=== PATIENT | female | born 1965 | race Caucasian/White ===

== ENCOUNTER 2016-08-21 01:40 | Emergency (ER) | payer OTHER ==
[~2016-08-21 01:40] MED LIST: ANAPROX DS550 MG PO; BLOOD PRESSURE MED; NEXIUM40 MG PO; PREVACID30 MG; PROZAC20 MG; [UNRECOGNIZED DRUG - OTHER]
[2016-08-21] MEDS ORDERED: HYDROCHLOROTHIA25 M1 PO (01:59)
[2016-08-21] MEDS ORDERED: NEXIUM40 M1 PO (01:59)
[2016-08-21] MEDS ORDERED: PAXIL40 M1 PO (01:59)
[2016-08-21] MEDS ORDERED: COZAAR100 M1 PO (01:59)
[2016-08-21] MEDS ORDERED: CO Q-10100 M2 PO (02:00)
[2016-08-21] MEDS ORDERED: EXCEDRIN MIGRA1 EAC3 PO (02:00)
[2016-08-21] MEDS ORDERED: POTASSIUM CHLO20 ME3 PO (02:00)
[2016-08-21] MEDS ORDERED: GLUCOPHAGE500 M3 PO (02:01)
[2016-08-21] MEDS ORDERED: PRAVASTATIN SOD20 M1 PO (02:01)
[2016-08-21] MEDS ORDERED: VITAMIN D31000 UNI3 PO (02:02)
[2016-08-21] MEDS ORDERED: CYCLOBENZAPRINE5 M1 PO (04:07)
[2016-08-21] MEDS ORDERED: TRAMADOL HCL50 M2 PO (04:07)
== END 2016-08-21 04:28 ==
LOC: EDMED 01:40
DX: M25.572 Pain in left ankle and joints of left foot (principal); I25.10 Atherosclerotic heart disease of native coronary artery without angina pectoris; I10 Essential (primary) hypertension; E11.9 Type 2 diabetes mellitus without complications; K21.9 Gastro-esophageal reflux disease without esophagitis; Z88.0 Allergy status to penicillin; Z88.5 Allergy status to narcotic agent; Z79.82 Long term (current) use of aspirin; Z79.899 Other long term (current) drug therapy
CPT/HCPCS: J1885

== ENCOUNTER 2016-08-26 06:16 | Emergency (ER) | payer OTHER, SELFPAY ==
[~2016-08-26 06:16] MED LIST changes: +CO Q-10100 M2 PO; +COZAAR100 M1 PO; +CYCLOBENZAPRINE5 M1 PO; +EXCEDRIN MIGRA1 EAC3 PO; +GLUCOPHAGE500 M3 PO; +HYDROCHLOROTHIA25 M1 PO; +NEXIUM40 M1 PO; +PAXIL40 M1 PO; +POTASSIUM CHLO20 ME3 PO; +PRAVASTATIN SOD20 M1 PO; +TRAMADOL HCL50 M2 PO; +VITAMIN D31000 UNI3 PO
[2016-08-26] MEDS ORDERED: PLAVIX75 M1 PO (06:27)
== END 2016-08-26 07:59 ==
LOC: EDMED 06:16
DX: S93.402A Sprain of unspecified ligament of left ankle, initial encounter (principal); M79.605 Pain in left leg; E11.9 Type 2 diabetes mellitus without complications; I10 Essential (primary) hypertension; W01.0XXA Fall on same level from slipping, tripping and stumbling without subsequent striking against object, initial encounter